=== PATIENT | male | born 1970 | race Hispanic/Latino ===

== ENCOUNTER 2022-05-22 08:52 | Observation (INO) | payer OTHER ==
[~2022-05-22] VITALS: Ht 167.6 cm; Wt 95.3 kg
[2022-05-22] MEDS ORDERED: TETANUS/DIPHTHERIA TOX ADULT 0.5 ML SYR IM STA (09:08)
[2022-05-22] MEDS ORDERED: TETANUS/DIPHTHERIA TOX ADULT 0.5 ML SYR ONE (09:24)
[2022-05-22] MEDS ORDERED: IBUPROFEN200 MG PO (09:44)
[2022-05-22] MEDS ORDERED: DOXYCYCLINE HY100 MG PO (09:44)
[2022-05-22] MEDS ORDERED: ACETAMINOPHEN500 MG PO (09:44)
[2022-05-22] MEDS ORDERED: DIPHENHYDRAMINE HCL INJ 50 MG/ML VIAL IV PRN (10:45)
[2022-05-22] MEDS ORDERED: ONDANSETRON HCL INJ 2MG/ML 2ML 2 MG/ML VIAL IV PRN ×2 (10:45)
[2022-05-22] MEDS ORDERED: FAMOTIDINE 20 MG/2 ML VIAL IV ONE ×2 (10:45→11:11)
[2022-05-22] MEDS ORDERED: SODIUM CHLORIDE 0.9% 1000ML 1,000 ML IV SCH (10:45)
[2022-05-22] MEDS ORDERED: Morphine 4mg INJECTION 4 MG/ML INJ IV PRN (10:45)
[2022-05-22] MEDS ORDERED: SODIUM CHLORIDE 0.9% 250ML 250 ML ONE (10:49)
[2022-05-22] MEDS ORDERED: SODIUM CHLORIDE 0.9% 1000ML 1,000 ML ONE (11:11)
[2022-05-22] MEDS ORDERED: FENTANYL CITRATE/PF 100MCG/2 ML INJ ONE (15:45)
[2022-05-22] MEDS ORDERED: HYDROMORPHONE 1MG/1ML INJ ONE (16:09)
[2022-05-22] MEDS ORDERED: LIDOCAINE HCL 2% LOCAL INJ 5 ML SDV VIAL INJ ONE (16:14)
[2022-05-22] MEDS ORDERED: PROPOFOL IV EMULSION 10 MG/ML 20 ML VIAL IV ONE (16:14)
[2022-05-22] MEDS ORDERED: POVIDONE IODINE 0.05% 0.05 % ML PO ONE (16:14)
[2022-05-22] MEDS ORDERED: HYDROCODON-ACE1 EA11 PO (16:18)
[2022-05-22] MEDS ORDERED: CEPHALEXIN500 MG PO (16:18)
[2022-05-22 16:20] VITALS: BP 128/85
== END 2022-05-22 16:55 | disposition home or self-care (01) ==
LOC: FSED 08:58 → UNDOADMOB 10:36 → ERHOLD 10:36 → INTOOBSV 10:36 → ERHOLD 16:13 → OR 16:13 → PACU V 16:13 → OR 16:55
PROVIDERS: ADMIT Orthopaedic Surgery; ATTEND Orthopaedic Surgery
DX: S62.351B Nondisplaced fracture of shaft of second metacarpal bone, left hand, initial encounter for open fracture (principal); S66.321A Laceration of extensor muscle, fascia and tendon of left index finger at wrist and hand level, initial encounter; W31.2XXA Contact with powered woodworking and forming machines, initial encounter; Y93.H3 Activity, building and construction; Y92.69 Other specified industrial and construction area as the place of occurrence of the external cause; Y99.0 Civilian activity done for income or pay; E78.5 Hyperlipidemia, unspecified; I10 Essential (primary) hypertension; G89.11 Acute pain due to trauma; Z23 Encounter for immunization; Z20.822 Contact with and (suspected) exposure to COVID-19
CPT/HCPCS: 11012; 26418; 26615; 73120; 90471; 90714; 96374; 99284; C1713; G0378; J0690; J1170; J2001; J2704; J3010; J7030; J7050; U0002